=== PATIENT | female | born 1940 | race Caucasian/White ===

== ENCOUNTER → 2017-01-15 | Outpatient (CLI) | payer MEDICARE, BC ==
[~2017-01-15] MED LIST: ASPI-183 PO; ASPI81TA82 PO; ATOR10 PO; AVAP300T PO; CALC1TAB87 PO; CALC500T21 PO; ECASA81 PO; FISHCAP4 PO; FURO1TAB60 PO; FURO40TA PO; IRBE300T44 PO; LIPI10TA PO; META28.34 PO; METF1000 PO; METO1TAB9 PO; METO50CR PO; MULT-65 PO; NAPR500T2 PO; TAB-TAB PO; TRAM50 PO; WALKER WHEELS/F1 MIS
[2017-01-15 09:11] LABS: AUTOMATED NEUTROPHIL # 3.4 TH/MM3 (1.8-7.7); BASOPHIL % 0.9 % (0.0-2.0); EOSINOPHIL # 0.2 TH/MM3 (0-0.4); EOSINOPHIL % 2.8 % (0.0-4.0); HEMATOCRIT 39.8 % (35.0-46.0); HEMO FLAGS DIFF FINAL; LYMPH % 26.5 % (9.0-44.0); LYMPHOCYTE # 1.5 TH/MM3 (1.0-4.8); MEAN CELL VOLUME 90.8 FL (80.0-100.0); MEAN CORPUSCULAR HEMOGLOBIN 31.1 PG (27.0-34.0); MEAN CORPUSCULAR HGB CONC 34.2 % (32.0-36.0); MONO % 9.6 % (0.0-8.0); NEUT % 60.2 % (16.0-70.0); PLATELET COUNT 194 TH/MM3 (150-450); RED BLOOD COUNT 4.38 MIL/MM3 (4.00-5.30); RED CELL DISTRIBUTION WIDTH 12.4 % (11.6-17.2); WHITE BLOOD COUNT 5.6 TH/MM3 (4.0-11.0)
[2017-01-15 09:15] LABS: PROTHROMBIN TIME - PATIENT 9.8 SEC (9.8-11.6)
[2017-01-15 09:37] LABS: BICARBONATE 27.6 MEQ/L (21.0-32.0); POTASSIUM 3.8 MEQ/L (3.5-5.1)
--- NOTE | 2017-01-15 09:49 | RADRPT ---
EXAM DATE/TIME: 01/15/2017 09:34 [facility] COMPARISON: No previous studies available for comparison. INDICATIONS : Evaluate for pneumonia, pneumothorax or communicable disease. Pre op for right knee surgery 01-24-17. MEDICAL HISTORY : Chronic obstructive pulmonary disease. short of breath from COPD SURGICAL HISTORY : None. ENCOUNTER: Initial ACUITY: 1 day PAIN SCORE: 0/10 LOCATION: Bilateral chest FINDINGS: PA and lateral views of the chest demonstrate the lungs to be symmetrically aerated without evidence of mass, infiltrate or effusion. The cardiomediastinal contours are unremarkable. Scoliotic deformit y is noted of the thoracic spine. CONCLUSION: 1. No acute process. 2. Thoracic scoliosis. Ryan Guthrie MD on January 15, 2017 at 9:47 Board Certified Radiologist. This report was verified electronically.
[2017-01-15 11:02] LABS: BLOOD, URINE SMALL (NEG); COMMENT (UR) CATH-CULT NOT IND; CULTURE IF INDICATED CATH CULTURE NOT IND; GLUCOSE,URINE NEG (NEG); HYALINE CAST, URINE 3 /lpf (RARE); KETONE, URINE NEG (NEG); MUCUS URINE FEW /lpf (OCC); NITRITE,URINE NEG (NEG); PH, URINE 5.5 (5.0-8.5); URINE COLOR YELLOW (YELLW/STRAW)
== END ==
LOC: CPRE 08:35 → EDBD 09:00
PROVIDERS: ATTEND Orthopaedic Surgery
DX: Z01.812 Encounter for preprocedural laboratory examination (principal); Z01.811 Encounter for preprocedural respiratory examination; M17.11 Unilateral primary osteoarthritis, right knee
CPT/HCPCS: 36415; 71020; 80048; 81001; 85025; 85610

== ENCOUNTER 2017-01-24 05:37 | Inpatient (IN) | payer MEDICARE, BC ==
--- NOTE | 2017-01-16 17:35 | MH ---
cc: OSVALDOLISAPINOGUERO DATE OF ADMISSION: 01/24/2017 ADMITTING DIAGNOSIS: Osteoarthritis of the right knee, varus deformity right knee, pain right knee. HISTORY The patient is a 70 year-old white female who has experienced pain of her right knee of at least three years duration. She had noted the gradual onset of her symptoms unrelated to unusual activity and had undergone previous office evaluation and treatment for which she did subsequently undergo arthroscopic surgery in October of 2013, for a history of medial and lateral meniscus tear. She was noted to have tolerated her operative procedure well and her initial recovery thereafter was quite favorable. She returned to the office in May 2014, reporting pain about the medial aspect of her right knee but it was being aggravated by weightbearing activity. Her diagnosis at that time was pes anserinus tendonitis for which she was treated with a local steroid injection and thereafter followed on an outpatient basis. She did well for an interval of time until returning in January 2016 reporting recurrent pain again localized to the medial aspect of her right knee possibly being related to exercise activities. She was again diagnosed as having suspected tendonitis for which at her request she was given a repeat injection and thereafter followed on an outpatient basis. She did well for an interval of time until returning to the office in November of this year reporting that she was having increasing symptoms about her right knee that were beginning to interfere with all weightbearing activities. Her x-ray studies revealed obvious degenerative changes with [id number] apposition about the medial compartment associated with a varus deformity between 5 and 8 degrees magnitude. Findings and treatment options were reviewed with the patient at that time, the pros and cons of continuing with conservative management versus operative intervention that would involve total knee arthroplasty were outlined in detail. Emphasis was made regarding the fact that the decision to proceed with surgery would be left entirely to the patient's discretion. At that time, the patient indicated that given the ongoing nature of her symptoms and the associated incapacitation, she felt that her more favorable long-term benefit would come from knee replacement surgery and expressed her desire to proceed accordingly. In compliance with her wishes she is currently being admitted in order that the above be accomplished. PAST MEDICAL HISTORY, HOSPITALIZATIONS AND SURGERIES: In addition to her arthroscopic surgery have included colonoscopy, D&C and childbirth. MEDICAL ILLNESSES Include hypertension, elevated cholesterol, borderline diabetes. CURRENT MEDICATIONS 1. Avapro 300 mg daily. 2. Metoprolol XL 50 mg daily. 3. Lipitor 10 mg daily. 4. Metformin 1000 mg daily. 5. Metamucil one teaspoon daily. 6. Multivitamin tablet daily. 7. Fish oil with flaxseed 1200 mg daily. 8. Calcium with vitamin D daily. 9. Lasix 40 mg p.r.n. 10. Naprosyn 500 mg t.i.d. on a p.r.n. basis. 11. 81 milligram aspirin tablet at least two times per week. ALLERGIES SULFA AND BACTRIM. Causes rash formation and nausea. DEMEROL. Ringing in the ears and nausea. CODEINE SENSITIVITY, causes nauseated sensation. She has tolerated both toradol and Tramadol for pain management in the past. REVIEW OF SYSTEMS She wears glasses primarily for driving and distance purposes. No headache, seizure or syncope. Occasional sinus congestion related to environmental irritants. No epistaxis. Auditory acuity intact. No tinnitus. No bleeding gums. Occasional dysphagia. No cough. There is a history of dyspnea on exertion. No pneumonia or tuberculosis. No angina. She is medically managed for hypertension. Appetite good, bowel movements regular. She has a history of gastric ulcers. No hemorrhoids. No urinary tract infection. No kidney stones. No fractures. There is a positive history for scoliosis. She also has a history of endometriosis. No psychiatric illness. Remaining review of systems is unremarkable and noncontributory. FAMILY HISTORY The patient is single. She had a partner for approximately 16 years who within the past 2-3 years at 79 years of age. She is two sons and one daughter by previous marriage all indicated to be in good health. Family history is positive for hypertension, diabetes, heart disease, colon and prostate cancer. 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 She completed a graduate school education. Denies active use of tobacco for at least 20 years but had been a one-pack per day smoker for almost 35 years in the past. Ethanol consumption on a social basis. PHYSICAL EXAMINATION Height 5 feet 3-3/4 inches, weight 222 pounds. An alert, oriented and responsive 70-year-old white female who sits quietly upon examination table with no apparent distress. HEAD, EYES, EARS, NOSE, AND THROAT: Pupils are equally round and reactive to light. Extraocular movements full. Sclerae clear. External nares clear. External auditory canals clear. Dental intact. Mucous membranes pink and moist. Pharynx clear. NECK: Neck is supple. Active range of motion without significant pain. Carotid pulse bilaterally. Trachea midline. Thyroid without enlargement. LUNGS: Clear to auscultation and percussion. No CVA tenderness. There is a prominence suggestive of a right rib hump consistent with history of scoliosis. HEART: Regular rhythm with a grade 2/6 systolic murmur, heard best at the left second intercostal space. ABDOMEN: Mildly obese, soft, nontender. Bowel sounds present. PELVIC: Per primary care physician. EXTREMITIES: Right knee, no obvious swelling or effusion. There is medial joint line tenderness without palpable deformity, mild varus orientation, apprehension and compression sign negative. Pain is elicited within the 110 degree range of flexion without appreciable crepitation. No collateral ligamentous instability. Juanita test and drawer sign negative, pivot shift and Alex sign positive for medial compartment pain. Straight leg raising unremarkable at 80 degrees, independent gait. NEUROLOGIC: Cranial nerves II-XII grossly intact. IMPRESSION: Osteoarthritis of the right knee, varus deformity right knee, pain right knee PLAN: Right total knee arthroplasty. The nature of the planned surgical procedure, the potential complications and risks associated, the expectations of surgery and the consent form were thoroughly reviewed with the patient prior to admission to the hospital. Lucila has indicated her full understanding regarding all of the above and given consent to proceed with treatment as outlined. Medical evaluation and clearance for surgery will be completed by her primary care physician Dr. Berrios, cardiology clearance per Dr. Peraza. MD JUAN Estrada/UZMA /4:48 PM /5:02 PM
[~2017-01-24] VITALS: Ht 162.6 cm; Wt 99.6 kg
[~2017-01-24 05:37] MED LIST changes: -ASPI-183 PO; -ASPI81TA82 PO; -ATOR10 PO; -AVAP300T PO; -CALC500T21 PO; -FURO40TA PO; -METO50CR PO; -TAB-TAB PO; -TRAM50 PO; -WALKER WHEELS/F1 MIS
[2017-01-24] MEDS ORDERED: POVIDONE IODINE 7.5% SCRUB 118 ML BOTTLE TOPICAL SCH (06:45)
[2017-01-24] MEDS ORDERED: ceFAZolin 2 GM PREMIX 50 ML IV SCH (06:45)
[2017-01-24] MEDS ORDERED: TRANEXAMIC ACID 1 GM POST-OP IV SCH ×2 (06:45)
[2017-01-24] MEDS ORDERED: METOPROLOL TARTRATE 25 MG TAB PO PRN (07:00)
[2017-01-24] MEDS ORDERED: POVIDONE IODINE 5% (ANTISEPSIS KIT) 4 APPLICATIONS EACH NARE PRN (07:00)
[2017-01-24] MEDS ORDERED: SODIUM CHLORID 0.9% 500 ML IV PRN (07:00)
[2017-01-24] MEDS ORDERED: CHLORHEXIDINE GLUCONATE 2 % 1 PACK (2 CLOTHS) TOPICAL PRN (07:00)
[2017-01-24] MEDS ORDERED: LACTATED RINGER'S 1000 ML IV PRN (07:00)
[2017-01-24] MEDS ORDERED: INSULIN HUMAN REGULAR 1,000 UNITS/10 ML VIAL SQ PRN (07:00)
[2017-01-24] MEDS ORDERED: ceFAZolin INJ 1,000 MG VIAL ONE (07:38)
[2017-01-24] MEDS ORDERED: ROPIVACAINE 0.5% PF INJ 30 ML VIAL ONE (08:01)
[2017-01-24] MEDS ORDERED: ACETAMINOPHEN 1000 MG/100 ML 100 ML IV ONE (08:22)
[2017-01-24] MEDS ORDERED: FAMOTIDINE 20 MG/2 ML VIAL ONE (08:22)
[2017-01-24] MEDS: TRANEXAMIC ACID 1 GM PRIOR TO PROCEDURE IV SCH ×4 (08:45→08:57)
[2017-01-24] MEDS ORDERED: DO NOT ADM ANY ANTICOAGULANT DRUGS PRN (11:13)
[2017-01-24] MEDS ORDERED: TRANEXAMIC ACID INJ 1,000 MG in SODIUM CHLORIDE 0.9% INJ 100 ML IV SCH (11:15)
[2017-01-24] MEDS ORDERED: Post-op Orders (for Pharmacy) XX ONE (11:15)
[2017-01-24] MEDS ORDERED: MISCELLANEOUS PHARMACY INFORMATION XX ONE (11:15)
[2017-01-24] MEDS ORDERED: HYDROmorphone HCL PF 2 MG/ML VIAL IV PUSH PRN (11:15)
[2017-01-24] MEDS: DEXT 5%-NACL 0.45% 1000 ML INJ 1,000 ML IV SCH ×2 (11:30→20:07)
[2017-01-24] MEDS ORDERED: *morphine SULFATE 8 MG/ML PERIprocedure ONLY ONE ×2 (11:36→12:19)
[2017-01-24] MEDS ORDERED: *ONDANSETRON 4 MG VIAL PERIprocedural Use ONLY ONE (11:50)
--- NOTE | 2017-01-24 12:01 | RADRPT ---
EXAM DATE/TIME: 01/24/2017 11:29 [facility] COMPARISON: No previous studies available for comparison. INDICATIONS : Post op right knee surgery MEDICAL HISTORY : None. SURGICAL HISTORY : None. ENCOUNTER: Initial ACUITY: 1 day PAIN SCORE: 7/10 LOCATION: Right knee FINDINGS: Two view examination of the right knee demonstrates postoperative right total knee replacement. Drain in soft tissues. Normal alignment. CONCLUSION: 1. Postop right knee replacement. Normal alignment. Oscar Brady MD on January 24, 2017 at 11:58 Board Certified Radiologist. This report was verified electronically.
[2017-01-24] MEDS ORDERED: NALOXONE HCL 0.4 MG/ML AMP IV PUSH PRN (14:00)
[2017-01-24] MEDS ORDERED: ACETAMINOPHEN 325 MG TAB PO PRN (14:00)
[2017-01-24] MEDS ORDERED: diphenhydrAMINE HCL 25 MG CAP PO PRN (14:00)
[2017-01-24] MEDS ORDERED: MORPHINE SULFATE 30 MG/30 ML PCA IV SCH (14:00)
[2017-01-24] MEDS ORDERED: PSYLLIUM PO PRN (15:45)
[2017-01-24] MEDS ORDERED: ASPIRIN EC 81 MG TABEC PO SCH (15:45)
--- NOTE | 2017-01-24 15:52 | PD.CONS ---
HPI Service [facility] Consult Requested By Dr. Green orthopedic service Reason for Consult Medical management history of hypertension diabetes type 2 Primary Care Physician Bc Berrios M.D. Diagnoses: History of Present Illness Patient is a very pleasant 76-year-old female with history of hypertension, diabetes type 2, hyperlipidemia who is admitted under orthopedic service and underwent right knee surgery. Patient apparently had been having pain on the right knee for the past 5 years on and off however lately increasing pain with difficulty ambulation that it's affecting his her hip. Decision was made to have right knee surgery done in patient underwent this successfully today. Patient seen in PACU very active alert awake very feisty. Denies any pain currently. Patient already voided after the procedure. [facility] consulted for medical management of hypertension and diabetes. Patient is very well informed about his medical her medical conditions states her last A1c is 5.6. I reviewed her preop labs from January 15. Review of Systems Constitutional: DENIES: Diaphoretic episodes, Fatigue, Fever, Weight gain, Weight loss, Chills, Dizziness, Change in appetite, Night Sweats Endocrine: DENIES: Abnorml menstrual pattern, Heat/cold intolerance, Polydipsia , Polyuria, Polyphagia Eyes: DENIES: Blurred vision, Diplopia, Eye inflammation, Eye pain, Vision loss , Photosensitivity, Double Vision Ears, nose, mouth, throat: DENIES: Tinnitus, Hearing loss, Vertigo, Nasal discharge, Oral lesions, Throat pain, Hoarseness, Ear Pain, Running Nose, Epistaxis, Sinus Pain, Toothache, Odynophagia Respiratory: DENIES: Apneas, Cough, Snoring, Wheezing, Hemoptysis, Sputum production, Shortness of breath Cardiovascular: DENIES: Chest pain, Palpitations, Syncope, Dyspnea on Exertion , PND, Lower Extremity Edema, Orthopnea, Claudication Gastrointestinal: DENIES: Abdominal pain, Black stools, Bloody stools, Constipation, Diarrhea, Nausea, Vomiting, Difficulty Swallowing, Anorexia Genitourinary: DENIES: Abnormal vaginal bleeding, Dysmenorrhea, Dyspareunia, Sexual dysfunction, Urinary frequency, Urinary incontinence, Urgency, Hematuria , Dysuria, Nocturia, Vaginal discharge Musculoskeletal: COMPLAINS OF: Joint pain (right knee) Integumentary: DENIES: Abnormal pigmentation, Pruritus, Rash, Nail changes, Breast masses, Breast skin changes, Nipple discharge Hematologic/lymphatic: DENIES: Bruising, Lymphadenopathy Immunologic/allergic: DENIES: Eczema, Urticaria Neurologic: DENIES: Abnormal gait, Headache, Localized weakness, Paresthesias, Seizures, Speech Problems, Tremor, Poor Balance Psychiatric: DENIES: Anxiety, Confusion, Mood changes, Depression, Hallucinations, Agitation, Suicidal Ideation, Homicidal Ideation, Delusions Past Family Social History Allergies: Coded Allergies: Sulfa (Sulfonamide Antibiotics) (Verified Allergy, Severe, Rash, 01/15/17) meperidine (Unverified Allergy, Severe, TINNITUS, VOMITING, 01/15/17) bee venom protein (honey bee) (Unverified Allergy, Unknown, THROAT CLOSING , EDEMA, 01/15/17) hornet venom (Unverified Allergy, Unknown, THROAT CLOSES, 01/15/17) codeine (Verified Adverse Reaction, Severe, Nausea/Vomiting, 01/15/17) Uncoded Allergies: HORNET (Allergy, Severe, THROAT CLOSES, 10/24/13) Past Medical History Hypertension Hyperlipidemia Diabetes type 2 Osteoarthritis Patient denies any history of CVA, on no history of CAD Past Surgical History She had the right knee surgery in the past for a torn meniscus. Reported Medications As an outpatient patient is an 8 pravastatin Toprol 50 minute gram XL daily Cassandra Aspirin Naproxen Lasix 40 mg when necessary Psyllium Metformin 1 g daily Multivitamin Active Ordered Medications Xarelto IV Dilaudid when necessary for pain Tramadol when necessary for pain Family History Noncontributory Social History Smoker quit 20 years ago Occasional wine No history of substance abuse Physical Exam Vital Signs Vital Signs Date Time Temp Pulse Resp B/P (MAP) Pulse Ox O2 Delivery O2 Flow Rate FiO2 01/24/17 12:30 64 15 127/60 (82) 98 Nasal Cannula 3 01/24/17 12:15 64 15 127/60 (82) 98 Nasal Cannula 3 01/24/17 12:00 68 15 160/71 (100) 99 Nasal Cannula 3 01/24/17 11:45 69 17 122/82 (95) 97 Nasal Cannula 3 01/24/17 11:30 70 15 177/77 (110) 97 Nasal Cannula 3 01/24/17 11:15 97.4 79 15 181/81 (114) 93 Nasal Cannula 3 01/24/17 08:50 98.0 71 18 153/82 (105) 97 Physical Exam GENERAL: This is a well-nourished, well-developed patient, in no apparent distress. Very feisty and interactive SKIN: No rashes, ecchymoses or lesions. Cool and dry. HEAD: Atraumatic. Normocephalic. EYES: Pupils equal round and reactive. Extraocular motions intact. No scleral icterus. ENT: Nose without bleeding, Throat without erythema, tonsillar hypertrophy or exudate. Airway patent. NECK: Trachea midline. No JVD or lymphadenopathy. Supple, nontender, no meningeal signs. CARDIOVASCULAR: Regular rate and rhythm without murmurs, gallops, or rubs. RESPIRATORY: Clear to auscultation. Breath sounds equal bilaterally. No wheezes , rales, or rhonchi. GASTROINTESTINAL: Abdomen soft, non-tender, nondistended. No hepato-splenomegaly , or palpable masses. No guarding. MUSCULOSKELETAL ; right knee on CPM postop dressing in place NEUROLOGICAL: Awake and alert. Cranial nerves II through XII intact. Grossly no deficits Imaging Last Impressions Knee X-Ray 01/24/17 1113 Signed Impressions: Service Date/Time: Tuesday, January 24, 2017 11:29 - CONCLUSION: 1. Postop right knee replacement. Normal alignment. Oscar Brady MD Assessment and Plan Assessment and Plan 76-year-old female admitted Status post right total knee arthroplasty for severe osteoarthritis Orthopedic service is following. PT consult When necessary pain meds per primary service History of hypertension continue on Toprol 50 mg XL daily Avapro daily. aspirin daily. Diabetes type 2 last hemoglobin A1c per patient is 5.6. Continue on metformin 1 g daily. ADA diet Hyperlipidemia continue on atorvastatin daily. Xarelto for DVT prophylaxis. Discharge planning. Patient prefers to go home with home health physical therapy. case management involved. Thank you for this consult we'll follow patient in-house with you Discussed Condition With Patient Daniela Josue MD Jan 24, 2017 15:52
[2017-01-24 16:03] VITALS: BP 142/69; PULSE 89; RESP 19; TEMP 96.1; O2SAT 97
[2017-01-24] MEDS: PCA - TOTAL MG MORPHINE DELIVERED PER SHIFT SCH ×2 (16:09→22:00)
[2017-01-24] MEDS ORDERED: PSYLLIUM FIBER SF/GF 6 GM POWD PKT PO PRN (17:30)
[2017-01-24] MEDS: ONDANSETRON HCL 4 MG/2 ML VIAL IVP PRN (19:00)
[2017-01-24 20:00] VITALS: BP 131/77; PULSE 82; RESP 22; TEMP 96.4; O2SAT 95
[2017-01-24] MEDS: ATORVASTATIN 10 MG TAB PO SCH ×2 (20:07→20:51)
[2017-01-24 20:20] VITALS: O2SAT 97
[2017-01-24] MEDS ORDERED: ZOLPIDEM TARTRATE 5 MG TAB PO PRN (21:00)
[2017-01-24] MEDS: traMADol HCL 50 MG TAB PO PRN (22:26)
[2017-01-25] VITALS (7 sets, daily range): BP systolic 121–156; BP diastolic 66–93; PULSE 83–90; RESP 17–20; TEMP 95.4–98.9; O2SAT 93–98
[2017-01-25] MEDS: ONDANSETRON HCL 4 MG/2 ML VIAL IVP PRN (01:20)
[2017-01-25] MEDS: traMADol HCL 50 MG TAB PO PRN ×3 (02:20→15:42)
[2017-01-25] MEDS: DEXT 5%-NACL 0.45% 1000 ML INJ 1,000 ML IV SCH ×3 (03:13→19:13)
[2017-01-25] MEDS: PCA - TOTAL MG MORPHINE DELIVERED PER SHIFT SCH ×3 (06:00→22:00)
[2017-01-25] MEDS ORDERED: ASPI-183 PO (06:20)
[2017-01-25] MEDS ORDERED: TRAM50 PO (06:20)
--- NOTE | 2017-01-25 06:21 | HHI.FF ---
Face to Face Verification Diagnosis: (1) DJD (degenerative joint disease) of knee Physical Therapy Gait training Knee: Total knee, Protocol: Right, Full weight bearing Right LE Weight Bearing: WB as tolerated Right LE Range of Motion: Active ROM Nursing Dressing Changes: Daily dressing change I have seen patient Lucila Edwards on 01/25/17. My clinical findings support the need for the requested home health care services because: Limited ability to care for self High risk of falls I certify that my clinical findings support that this patient is homebound because: Post-op weakness Unsteady gait/balance Unsafe to leave home unassisted Shai Green MD Jan 25, 2017 06:21
[2017-01-25] MEDS ORDERED: WALKER WHEELS/F1 MIS (06:24)
[2017-01-25 06:31] LABS: HEMATOCRIT 34.9 % (35.0-46.0); REVIEW FLAG FINAL
[2017-01-25] MEDS ORDERED: IRBESARTAN 300 MG PO SCH (09:00)
[2017-01-25] MEDS ORDERED: NON-FORMULARY DRUG (Fish Oil-Cholecalciferol (Fish Oil + D3) 1 CAP) PO SCH (09:00)
[2017-01-25] MEDS ORDERED: NON-FORMULARY DRUG (Multiple Vitamin (Multi-Vitamin Daily) 1 TAB) PO SCH (09:00)
[2017-01-25] MEDS: METOPROLOL SUCCINATE 50 MG EXTENDED RELEASE TAB PO SCH (09:19)
[2017-01-25] MEDS: LOSARTAN 50 MG TAB PO SCH (09:19)
[2017-01-25] MEDS: CALCIUM/VITAMIN D 250 MG/125 U TAB PO SCH (09:19)
[2017-01-25] MEDS: DOCUSATE SODIUM 100 MG CAP PO PRN ×2 (09:19→20:55)
[2017-01-25] MEDS: MULTIVITAMIN TAB PO SCH (09:20)
[2017-01-25] MEDS: metFORMIN HCL 500 MG TAB PO SCH (09:20)
[2017-01-25] MEDS: RIVAROXABAN 10 MG TAB PO SCH (11:17)
--- NOTE | 2017-01-25 11:17 | MP ---
cc: GUERO GREEN DATE OF SURGERY 01/24/2017 PREOPERATIVE DIAGNOSIS Osteoarthritis of the right knee, varus deformity right knee, pain of the right knee. POSTOPERATIVE DIAGNOSIS Osteoarthritis of the right knee, varus deformity right knee, pain of the right knee. PROCEDURE Right total knee arthroplasty. SURGEON Norma. ANESTHESIA General endotracheal. INDICATIONS This is a 70-year-old white female with pain of her right knee of at least three years duration of gradual onset unrelated to injury or unusual activity. She had undergone previous orthopedic evaluation and was diagnosed as having medial and lateral meniscus tear for which arthroscopic surgery was accomplished in October 2013. The patient tolerated her operative procedure well and was able to experience a trend of improvement thereafter. She returned to the office the following year reporting some recurrent pain about the medial aspect of her right knee. At that time she was diagnosed as having tendinitis for which she was treated with a local steroid injection and once again followed on an outpatient basis. She did well for a number of months until returning to the office in January 2016 reporting some recurrent pain possibly being related to exercise activities. Once again her findings were felt to be consistent with localized tendinitis and at her request she did receive a repeat injection and continued to be followed thereafter. She returned to the office in November of this year reporting that she was having increasing symptoms about her right knee that was beginning to interfere with all weightbearing activities. Her current x-ray studies revealed obvious degenerative change with [id number] apposition about the medial compartment associated with a varus deformity of almost 8 degrees magnitude. Findings and treatment options were reviewed with the patient at that time. The pros and cons of continuing with conservative management versus operative intervention that would involve total knee arthroplasty were outlined in detail. Emphasis was made regarding the fact that the decision to proceed with surgery would be left entirely to the patient's discretion. At that time the patient felt that her discomfort was of such degree that she was ready to proceed with surgery as discussed and in compliance with her wishes she was currently scheduled for admission in order that the above be accomplished. FORMAT Following the induction of satisfactory general anesthesia by endotracheal intubation as completed per the Department of Anesthesia, a tourniquet was established around the proximal portion of the right lower extremity. The extremity proper was isolated with a U-drape thereafter being prepped with Betadine solution and draped into a sterile field in the routine manner. Prior to initiation of the actual procedure the standard timeout protocol was completed. All parameters were appropriately addressed and confirmed by operating room personnel. The extremity was elevated for approximately one minute and the tourniquet thus inflated to 250 mmHg pressure. A sharp skin incision was initiated midline over the anterior aspect of the knee and developed through underlying subcutaneous tissue with hemostasis maintained by electrocautery. By deepening dissection the anterior capsule was exposed, a medial capsulotomy completed and the patella subluxed in a lateral orientation. Examination of the joint space revealed significant degenerative changes being most pronounced about the medial compartment extending into the patellofemoral articulation. There was complete erosion of articular cartilage and underlying subchondral bone exposed. The articular surface of the patella was resected with power saw. A three-hole guide was utilized for establishing post holes. Medial and lateral meniscus structures were sharply excised as was the anterior cruciate ligament. A centering hole was placed in the distal aspect of the femur allowing positioning of the intramedullary guide. The distal femoral cutting jig was attached and the distal femur resected. AP measurement noted 67.5 mm sizing to be appropriate. The matching cutting block was attached. Anterior, posterior and chamfer cuts were completed. The tibial plateau was thereafter subluxed in an anterior orientation allowing positioning of the extramedullary guide. The tibial plateau was resected and measured with 71 mm sizing determined to be appropriate. A trial reduction followed utilizing a 67.5 mm anatomic femoral component, a 71 mm tibial base with a 10 mm bearing insert. The knee was readily brought to full extension. There was no laxity to varus valgus stress at both 0 and 90 degrees flexed posture. Orientation was confirmed as being appropriate with measurement of the pelvic guide through the mechanical axis of the knee. A trial reduction followed utilizing a 34 mm standard patellar button. Once again good tracking was demonstrated with no tendency toward subluxation. All trial components being removed the remaining portion of the proximal tibia was prepared for insertion of the permanent component. The joint space was thoroughly lavaged with pulsating antibiotic solution, hemostasis maintained by electrocautery. An autogenous bone plug was inserted into the distal femoral guide hole and thereafter preparation of Palacos bone cement was utilized in inserting knee components in a sequential fashion which included a 71 mm fixed cruciate tibial plate to which a 10 mm Vanguard tibial bearing insert was secured with locking montoya. The 67.5 mm Vanguard femoral component was firmly seated onto the distal femur. Excess cement being removed the knee was brought to full extension and thereafter the 34 mm standard three-post patellar button was attached and maintained in place with patellar clamp while cement hardening was completed. Final range of motion assessment noted good tracking stability throughout the knee. Irrigation was repeated with hemostasis maintained. Automatic drain tubes were inserted through superior stab wounds. The capsule was repaired with 0 Vicryl suture. The remaining portion of the wound was closed in layers in the routine manner with skin margins being re-approximated with a running subcuticular 3-0 Vicryl suture over which Steri-Strips were applied. Xeroform gauze and a bulky dry sterile dressing was placed. The tourniquet had been deflated after 42 minutes of tourniquet time. The extremity being supported in a canvas knee splint, anesthesia was discontinued. The patient was thus transferred to a hospital bed and returned to the recovery room in satisfactory condition having tolerated her operative procedure well. Estimated blood loss was approximately 100 cc as determined per Anesthesia. All implants were of the [employer] commercial portfolio manager. Guero Green MD NBS/BT /11:04 AM /11:03 AM
--- NOTE | 2017-01-25 13:51 | HHI.PR ---
Subjective Remarks very motivated with therapy- did very well this am going for another therapy this pm pain controlled on po- not requiring much Objective Vitals Vital Signs Date Time Temp Pulse Resp B/P (MAP) Pulse Ox O2 Delivery O2 Flow Rate FiO2 01/25/17 11:48 96.3 90 18 121/66 (84) 98 01/25/17 07:41 95.4 83 17 123/67 (85) 93 01/25/17 06:00 18 01/25/17 04:00 97.2 87 20 146/72 (96) 96 01/25/17 00:00 96.7 84 20 144/90 (108) 96 01/24/17 22:00 19 01/24/17 20:20 97 Nasal Cannula 3.00 01/24/17 20:00 96.4 82 22 131/77 (95) 95 01/24/17 16:12 15 01/24/17 16:09 19 01/24/17 16:03 96.1 89 19 142/69 (93) 97 01/24/17 15:37 97.8 75 15 130/83 (99) 98 Nasal Cannula 3 01/24/17 15:00 79 15 166/70 (102) 98 Nasal Cannula 3 01/24/17 14:00 81 16 158/73 (101) 98 Nasal Cannula 3 I/O 01/24/17 01/24/17 01/24/17 01/25/17 01/25/17 01/25/17 07:00 15:00 23:00 07:00 15:00 23:00 Intake Total 1200 ml 988 ml 320 ml Output Total 100 ml 500 ml Balance 1100 ml 988 ml -180 ml Intake Oral 320 ml IV Total 988 ml Other 1200 ml Output Urine Total 500 ml Estimated Blood Loss 100 ml # Bowel Movements 0 Result Diagram: 01/25/17 0615 Imaging Last Impressions Knee X-Ray 01/24/17 1113 Signed Impressions: Service Date/Time: Tuesday, January 24, 2017 11:29 - CONCLUSION: 1. Postop right knee replacement. Normal alignment. Oscar Brady MD Objective Remarks awake and alert, no distress lungs clear regular rhythma bdomen soft extremitieis- post op dressing in place right knee no calf tenderness Procedures right TKA- 01/24 A/P Assessment and Plan 76-year-old female admitted Status post right total knee arthroplasty for severe osteoarthritis 01/24 Orthopedic service is following. PT daily When necessary pain meds per primary service History of hypertension continue on Toprol 50 mg XL daily Avapro daily. aspirin daily. Diabetes type 2 last hemoglobin A1c per patient is 5.6. Continue on metformin 1 g daily. ADA diet. good readings Hyperlipidemia continue on atorvastatin daily. Xarelto for DVT prophylaxis. Possible DC tomorrow with home health Daniela Josue MD Jan 25, 2017 13:51
[2017-01-25] MEDS: ATORVASTATIN 10 MG TAB PO SCH (20:59)
[2017-01-26 00:40] VITALS: BP 107/51; PULSE 81; RESP 18; TEMP 99.1; O2SAT 96
[2017-01-26] MEDS: DEXT 5%-NACL 0.45% 1000 ML INJ 1,000 ML IV SCH ×2 (03:13→11:13)
[2017-01-26] MEDS: PCA - TOTAL MG MORPHINE DELIVERED PER SHIFT SCH (05:53)
[2017-01-26 08:00] VITALS: BP 126/59; PULSE 84; RESP 16; TEMP 96.7; O2SAT 94
--- NOTE | 2017-01-26 08:11 | HHI.PR ---
Subjective Remarks feels great no complains of pain voiding spontaneously feels like she is going to have a BM today Objective Vitals Vital Signs Date Time Temp Pulse Resp B/P (MAP) Pulse Ox O2 Delivery O2 Flow Rate FiO2 01/26/17 05:53 18 01/26/17 00:40 99.1 81 18 107/51 (69) 96 01/25/17 23:24 Room Air 01/25/17 22:00 17 01/25/17 20:37 98 21 01/25/17 20:10 98.9 90 18 132/67 (88) 98 01/25/17 15:52 97.8 86 18 156/93 (114) 96 01/25/17 11:48 96.3 90 18 121/66 (84) 98 I/O 01/25/17 01/25/17 01/25/17 01/26/17 01/26/17 01/26/17 07:00 15:00 23:00 07:00 15:00 23:00 Intake Total 320 ml 850 ml 480 ml 360 ml Output Total 500 ml 0 ml 0 ml Balance -180 ml 850 ml 480 ml 360 ml Intake Oral 320 ml 850 ml 480 ml 360 ml Output Urine Total 500 ml Drainage Total 0 ml 0 ml # Voids 3 2 2 # Bowel Movements 0 0 0 Result Diagram: 01/25/17 0615 Imaging Last Impressions Knee X-Ray 01/24/17 1113 Signed Impressions: Service Date/Time: Tuesday, January 24, 2017 11:29 - CONCLUSION: 1. Postop right knee replacement. Normal alignment. Oscar Brady MD Objective Remarks awake and alert, no distress lungs clear regular rhythma abdomen soft extremities- post op dressing in place right knee no calf tenderness Procedures right TKA- 01/24 A/P Assessment and Plan 76-year-old female admitted Status post right total knee arthroplasty for severe osteoarthritis 01/24 Orthopedic service is following. PT daily History of hypertension continue on Toprol 50 mg XL daily Avapro daily. aspirin daily. Diabetes type 2 last hemoglobin A1c per patient is 5.6. Continue on metformin 1 g daily. ADA diet. good readings Hyperlipidemia continue on atorvastatin daily. Xarelto for DVT prophylaxis. DC today with home health PT OP ff up with PCP- Dr. Bragg and orthopedics Daniela Josue MD Jan 26, 2017 08:11
[2017-01-26] MEDS: MULTIVITAMIN TAB PO SCH (09:18)
[2017-01-26] MEDS: RIVAROXABAN 10 MG TAB PO SCH (09:18)
[2017-01-26] MEDS: CALCIUM/VITAMIN D 250 MG/125 U TAB PO SCH (09:18)
[2017-01-26] MEDS: metFORMIN HCL 500 MG TAB PO SCH (09:19)
[2017-01-26] MEDS: traMADol HCL 50 MG TAB PO PRN ×2 (09:27→13:21)
[2017-01-26] MEDS: METOPROLOL SUCCINATE 50 MG EXTENDED RELEASE TAB PO SCH (09:28)
[2017-01-26] MEDS: LOSARTAN 50 MG TAB PO SCH (09:28)
[2017-01-26] MEDS: DOCUSATE SODIUM 100 MG CAP PO PRN (09:47)
[2017-01-26 12:00] VITALS: BP 142/68; PULSE 74; RESP 18; TEMP 97; O2SAT 99
--- NOTE | 2017-01-29 16:03 | MD ---
cc: RODRIGUE PERAZA M.D., NORMAN CHOI, DAE S. M.D. ADMISSION DATE: 01/24/2017 DISCHARGE DATE: 01/26/2017 ADMISSION DIAGNOSIS Osteoarthritis of the right knee, varus deformity right knee and pain of the right knee. DISCHARGE DIAGNOSIS Osteoarthritis of the right knee, varus deformity right knee and pain of the right knee. HISTORY The patient is a 70-year-old white female with a history of right knee pain of three years duration, symptoms of gradual onset unrelated to unusual activity. The patient had been treated conservatively in the past, subsequently undergoing arthroscopic surgery in October of 2013 for a history of a medial and lateral meniscus tear. She tolerated the operative procedure well and was able to experience a favorable response thereafter. She returned to the office in May of 2014 reporting some recurrent pain about the medial aspect of her right knee for which she was diagnosed as having tendonitis and was treated with a local steroid injection again being followed on outpatient basis. A favorable response was again noted until January of 2016 when the patient again noted recurrent pain about her right knee possibly being related to exercise activity. Again, clinical findings were thought to be suggestive of tendonitis for which the patient received a repeat injection and followed on an outpatient basis thereafter. She returned to the office in November of this year reporting that with the passage of time she was becoming progressively more symptomatic with pain. Her x-ray studies revealed obvious degenerative changes with [id number] apposition about the medial compartment associated with a varus deformity of almost 8 degrees magnitude. Findings and treatment options were reviewed with the patient at that time. The pros and cons of continuing with conservative management versus operative intervention that would involve a total knee replacement were outlined in detail. Emphasis was made regarding the fact that the decision to proceed with surgery would be left entirely to the patient's discretion. The patient felt that she had arrived at that point in time where she was ready to proceed accordingly and in compliance with her wishes she was scheduled for admission in order that the above be accomplished. PHYSICAL EXAMINATION Her physical examination at the time admission revealed no obvious swelling or effusion about the right knee. There was medial joint line tenderness without palpable deformity. Mild varus orientation. Apprehension and compression sign negative. Pain elicited within the 110 degrees range of flexion without crepitation. No collateral ligamentous instability. Juanita test and drawer sign negative. Pivot shift and Alex sign positive for medial compartment pain. Straight-leg raising unremarkable at 80 degrees. Independent gait. HOSPITAL COURSE Prior to admission to the hospital the patient had undergone medical evaluation and clearance for surgery as completed by her primary care physician, Dr. Berrios, and cardiology clearance per Dr. Peraza. She was taken to the operating room on 24 January 2017 and on that date underwent a right total knee arthroplasty completed in an uncomplicated manner. The patient was noted to have tolerated her operative procedure well with postoperative course stable thereafter. Hemoglobin/hematocrit assessment postoperatively was 12 and 34.9 respectively. The patient was progressively mobilized under the guidance of physical therapy being permitted weightbearing to tolerance about the right lower extremity. Follow-up examination of her surgical wound noted to be intact, healing favorably, no evidence of infection. Medical followup per the hospitalist service. DVT prophylaxis initiated. [employer] consulted to assist with discharge planning. The patient had indicated her desire to be discharged home and continue her rehabilitation on an outpatient basis. Plans were finalized in this regard and pending medical clearance she was scheduled for discharge on the second postoperative day at which time she was noted to be making favorable progress with regards to her rehab program. FOLLOWUP She was scheduled be seen in office followup approximately in 4 weeks. CONDITION ON DISCHARGE Her condition at the time of discharge was stable. PROGNOSIS Favorable . DISCHARGE MEDICATIONS 1. Ultram 50 mg #60. Aspirin 325 mg one tablet twice daily for three weeks, #40. MD JUAN Estrada/SSB /7:36 AM /3:41 PM
== END 2017-01-26 15:44 | disposition home health service (06) | DRG 470 ==
LOC: EDBD → HSDI 05:37 → N06B 16:18
PROVIDERS: ADMIT Orthopaedic Surgery; ATTEND Orthopaedic Surgery
PROC: 3E0T3BZ Introduction of Anesthetic Agent into Peripheral Nerves and Plexi, Percutaneous Approach (ICD-10-PCS; 2017-01-24)
PROC: 0SRC0J9 Replacement of Right Knee Joint with Synthetic Substitute, Cemented, Open Approach (ICD-10-PCS; principal; 2017-01-24 08:57)
DX: M17.11 Unilateral primary osteoarthritis, right knee (principal); E11.9 Type 2 diabetes mellitus without complications; I10 Essential (primary) hypertension; M21.161 Varus deformity, not elsewhere classified, right knee; E78.5 Hyperlipidemia, unspecified; Z87.891 Personal history of nicotine dependence; Z79.84 Long term (current) use of oral hypoglycemic drugs; Z88.5 Allergy status to narcotic agent; Z88.2 Allergy status to sulfonamides
CPT/HCPCS: 73560; 82948; 85014; 85018; 86850; 86900; 86901; 88300; 88305; 94150; C1776; J0131; J0690; J2270; J2405; J2795; J7120; L1830